=== PATIENT | female | born 2000 | race Caucasian/White ===

== ENCOUNTER 2019-06-09 11:50 | Inpatient (IN) | payer MEDICAID ==
[~2019-06-09] VITALS: Ht 170.2 cm; Wt 106.5 kg
[~2019-06-09 11:50] MED LIST: DOCU-144 PO; FERR134T PO; IBUP-1542 PO; PREN-93 PO
[2019-06-09 12:14] VITALS: Ht 170.2 cm; Wt 106.5 kg
[2019-06-09] MEDS ORDERED: LACTATED RINGER'S 1,000 ML IV PRN (13:03)
[2019-06-09] MEDS ORDERED: AMPICILLIN 2 GM/NS (PMX) 100 ML IV ONE (13:30)
[2019-06-09] MEDS ORDERED: BUTORPHANOL 2 MG INJ IV PRN (13:30)
[2019-06-09] MEDS ORDERED: MINERAL OIL LIGHT 10 ML VIAL TOP PRN (13:30)
[2019-06-09] MEDS ORDERED: OXYTOCIN 30 UNITS/LR 500 ML IV SCH ×4 (13:30→20:00)
[2019-06-09] MEDS ORDERED: IBUPROFEN 600 MG TAB PO PRN (13:30)
[2019-06-09] MEDS ORDERED: LIDOCAINE 1% (MPF) 30 ML INJ INJ PRN (13:30)
[2019-06-09] MEDS: MISOPROSTOL 50 MCG CAPSULE PO SCH (15:47)
[2019-06-09] MEDS: LACTATED RINGER'S 1,000 ML IV SCH (20:26)
[2019-06-09] MEDS: AMPICILLIN 1 GM/NS (PMX) 50 ML IV SCH (21:13)
[2019-06-10] MEDS ORDERED: FENTAnyl 2MCG/ML-ROPIV 0.2% 100 ML ONE (00:50)
[2019-06-10] MEDS ORDERED: NALOXONE (0.4 MG/ML) INJ IV PRN (01:30)
[2019-06-10] MEDS ORDERED: ONDANSETRON 4 MG INJ IV PRN (01:30)
[2019-06-10] MEDS ORDERED: DIPHENHYDRAMINE 50 MG INJ IV PRN (01:30)
[2019-06-10] MEDS: AMPICILLIN 1 GM/NS (PMX) 50 ML IV SCH ×5 (01:33→17:40)
[2019-06-10] MEDS: LACTATED RINGER'S 1,000 ML IV SCH ×3 (05:30→19:44)
[2019-06-10] MEDS: FENTAnyl 2MCG/ML-ROPIV 0.2% 100 ML BAG EPI SCH ×2 (08:11→16:24)
[2019-06-10] MEDS: MISOPROSTOL 50 MCG CAPSULE PO SCH ×2 (12:00→18:00)
[2019-06-10] MEDS: LACTATED RINGER'S 1,000 ML IV* SCH (22:03)
[2019-06-10] MEDS ORDERED: HYDROCODONE/APAP (5/325) TAB PO PRN (22:30)
[2019-06-10] MEDS ORDERED: BENZOCAINE 20% 56 ML SPRAY TOP PRN (22:30)
[2019-06-10] MEDS ORDERED: CARBOPROST 250 MCG INJ IM PRN (22:30)
[2019-06-10] MEDS ORDERED: MISOPROSTOL 200 MCG TAB PR PRN (22:30)
[2019-06-10] MEDS ORDERED: LANOLIN HPA 1 PKT TOP PRN (22:30)
[2019-06-10] MEDS ORDERED: METHYLERGONOVINE 0.2 MG INJ IM PRN (22:30)
[2019-06-10] MEDS ORDERED: OXYTOCIN 30 UNITS/LR 500 ML IV PRN (22:30)
[2019-06-10 23:00] VITALS: BP 125/73; PULSE 88; RESP 20
[2019-06-11] MEDS: IBUPROFEN 600 MG TAB PO SCH ×4 (01:10→17:22)
[2019-06-11] MEDS: OXYTOCIN 30 UNITS/LR 500 ML IV SCH ×2 (01:10→08:03)
[2019-06-11 04:00] VITALS: BP 133/70; PULSE 106; RESP 20
[2019-06-11] MEDS: LACTATED RINGER'S 1,000 ML IV* SCH ×2 (06:03→22:03)
[2019-06-11 07:30] VITALS: BP 128/67; PULSE 97; RESP 18
[2019-06-11 08:00] VITALS: BP 128/67
[2019-06-11] MEDS: FERROUS SULFATE (EC) 325 MG TAB PO SCH (08:17)
[2019-06-11] MEDS: ASCORBIC ACID 500 MG TAB PO SCH (08:18)
[2019-06-11 15:36] VITALS: BP 116/69
[2019-06-11 19:45] VITALS: BP 130/77; PULSE 80; RESP 18
[2019-06-12] MEDS: IBUPROFEN 600 MG TAB PO SCH ×3 (00:32→13:01)
[2019-06-12 04:20] VITALS: BP 119/70; PULSE 86; RESP 18
[2019-06-12] MEDS: LACTATED RINGER'S 1,000 ML IV* SCH (06:03)
[2019-06-12] MEDS ORDERED: DIPHTH/TET/ACEL PERTUSS (ADULT) 0.5 ML VIAL IM* ONE (09:00)
[2019-06-12] MEDS: FERROUS SULFATE (EC) 325 MG TAB PO SCH (09:18)
[2019-06-12] MEDS: ASCORBIC ACID 500 MG TAB PO SCH (09:18)
[2019-06-12] MEDS ORDERED: DOCUSATE SODIUM 100 MG CAP PO SCH (09:30)
== END 2019-06-12 15:57 | disposition home or self-care (01) | DRG 806 ==
LOC: OBT 11:50 → L-D 11:51 → OBT 13:00 → L-D 14:28 → PP1 06-10 23:04
PROVIDERS: ADMIT Obstetrics & Gynecology; ATTEND Obstetrics & Gynecology
PROC: 10E0XZZ Delivery of Products of Conception, External Approach (ICD-10-PCS; principal; 2019-06-10)
PROC: 4A1H7CZ Monitoring of Products of Conception, Cardiac Rate, Via Natural or Artificial Opening (ICD-10-PCS; 2019-06-10)
PROC: 10H073Z Insertion of Monitoring Electrode into Products of Conception, Via Natural or Artificial Opening (ICD-10-PCS; 2019-06-10)
DX: O77.0 Labor and delivery complicated by meconium in amniotic fluid (principal); D62 Acute posthemorrhagic anemia; Z37.0 Single live birth; O99.824 Streptococcus B carrier state complicating childbirth; O70.0 First degree perineal laceration during delivery; Z3A.39 39 weeks gestation of pregnancy
CPT/HCPCS: 62322; 76815; 80307; 85025; 85610; 85730; 86592; 86900; 86901; 87340; 99464; G0463; J0290; J2590; J3010; J7120